=== PATIENT | female | born 1985 | race Hispanic/Latino ===

== ENCOUNTER 2017-05-19 23:31 | Emergency (ER) | payer OTHER ==
[2017-05-19 23:39] VITALS: RESP 16; O2SAT 98
[2017-05-19] MEDS ORDERED: DiphenhydrAMINE 50 mg/ml Inj IV STA (23:50)
[2017-05-19] MEDS ORDERED: Sodium Chloride 0.9% 1,000 ML IV STA (23:50)
[2017-05-19] MEDS ORDERED: DiphenhydrAMINE 50 mg/ml Inj ONE (23:57)
[2017-05-20 00:27] LABS: BASO # 0.1 K/uL (0.0-0.2); BASO % 0.6 % (0.0-2.0); EOS # 0.1 K/uL (0.0-0.7); EOS % 1.5 % (0.0-4.0); HEMOGLOBIN 13.1 g/dL (12.0-16.0); LYMPH # 2.5 K/uL (1.0-4.3); LYMPH % 28.2 % (20.0-40.0); MEAN CELL VOLUME 89.9 fl (81.0-99.0); MEAN CORPUSCULAR HEMOGLOBIN 30.4 pg (27.0-31.0); MEAN CORPUSCULAR HGB CONC 33.8 g/dL (33.0-37.0); MEAN PLATELET VOLUME 7.4 fl (7.2-11.7); MONO # 0.4 K/uL (0.0-0.8); MONO % 4.8 % (0.0-10.0); NEUT # 5.9 K/uL (1.8-7.0); NEUT % 64.9 % (50.0-75.0); NRBC % 0.1 % (0.0-0.0); RBC 4.31 Mil/uL (3.80-5.20); RED CELL DISTRIBUTION WIDTH 13.2 % (11.5-14.5)
[2017-05-20 00:35] LABS: ALB/GLOB RATIO 1.2 (1.0-2.1); ALBUMIN 3.9 g/dL (3.5-5.0); ALT/SGPT 26 U/L (9-52); AST/SGOT 22 U/L (14-36); BLOOD UREA NITROGEN 9 mg/dl (7-17); CALCIUM 9.2 mg/dL (8.4-10.2); GFR AFRICAN-AMERICAN > 60; GFR NON-AFRICAN AMERICAN > 60
--- NOTE | 2017-05-20 01:09 | ED PDOC ---
HPI: Allergic Reaction Time Seen by Provider: 05/19/17 23:49 Chief Complaint (Nursing): Allergic Reaction Chief Complaint (Provider): Allergic Reaction History Per: Patient History/Exam Limitations: no limitations Onset/Duration Of Symptoms: Hrs (x1) Current Symptoms Are (Timing): Still Present Context: Food Possible Cause: Food Associated Symptoms: Skin Rash, Swelling, Itching, Redness Home/EMS Treatment: Benadryl Additional Complaint(s): 31 y/o female with no past medical history, who presents to the ED complaining of an allergic reaction x1 hour. Patient states she was eating [place] food when she felt acute itchiness, lip swelling, rash, chest tightness, and shortness of breath. Patient states she took 2 Benadryl which resolved her chest tightness and shortness of breath, but her itchiness, rash, and swelling remained. States she has no known food allergies, but does have seasonal allergies. Reports taking control. PMD: Dr. Hutchins Past Medical History Reviewed: Historical Data, Nursing Documentation, Vital Signs Vital Signs: Last Vital Signs Temp 97.5 F L 05/19/17 23:35 Pulse 93 H 05/19/17 23:35 Resp 16 05/19/17 23:35 BP 119/82 05/19/17 23:35 Pulse Ox 98 05/19/17 23:35 - Medical History PMH: No Chronic Diseases - Surgical History Surgical History: No Surg Hx - Family History Family History: States: Unknown Family Hx - Social History Current smoker - smoking cessation education provided: No Alcohol: Occasional Drugs: Denies - Home Medications Home Medications: Ambulatory Orders Medication Instructions Recorded Cetirizine HCl [Zyrtec] 10 mg PO QAM #7 capsule 05/20/17 Famotidine [Pepcid] 20 mg PO Q12 #14 tab 05/20/17 predniSONE [predniSONE Tab] 60 mg PO QAM #12 tab 05/20/17 - Allergies Allergies/Adverse Reactions: Allergies Allergy/AdvReac Type Severity Reaction Status Date / Time No Known Allergies Allergy Verified 05/19/17 23:35 Review of Systems ROS Statement: Except As Marked, All Systems Reviewed And Found Negative ENT: Positive for: Other (lip swelling) Cardiovascular: Positive for: Other (chest tightness) Respiratory: Positive for: Shortness of Breath Skin: Positive for: Rash Physical Exam - Reviewed Nursing Documentation Reviewed: Yes Vital Signs Reviewed: Yes - Physical Exam Appears: Positive for: Non-toxic, No Acute Distress Head Exam: Positive for: ATRAUMATIC, NORMAL INSPECTION, NORMOCEPHALIC Skin: Positive for: Rash (erythematous urticarial rashes to neck and back) Eye Exam: Positive for: EOMI, Normal appearance, PERRL ENT: Positive for: Other (angioedema of lips) Neck: Positive for: Normal, Painless ROM, Supple Cardiovascular/Chest: Positive for: Regular Rate, Rhythm. Negative for: Murmur Respiratory: Positive for: Normal Breath Sounds. Negative for: Respiratory Distress Gastrointestinal/Abdominal: Positive for: Normal Exam, Bowel Sounds, Soft. Negative for: Tenderness Back: Positive for: Normal Inspection. Negative for: L CVA Tenderness, R CVA Tenderness, Vertebral Tenderness Extremity: Positive for: Normal ROM. Negative for: Pedal Edema, Deformity Neurologic/Psych: Positive for: Alert, Oriented. Negative for: Motor/Sensory Deficits - Laboratory Results Result Diagrams: 05/20/17 00:23 05/20/17 00:23 - ECG O2 Sat by Pulse Oximetry: 98 (RA) Pulse Ox Interpretation: Normal - Critical Care Total Time (In Min): 30 Disposition - Clinical Impression Clinical Impression: Allergic reaction, Angioedema - Patient ED Disposition Is Patient to be Admitted: No Counseled Patient/Family Regarding: Studies Performed, Diagnosis, Need For Followup, Rx Given - Disposition Disposition: Routine/Home Disposition Time: 01:35 Condition: STABLE Prescriptions: Cetirizine HCl [Zyrtec] 10 mg PO QAM #7 capsule Famotidine [Pepcid] 20 mg PO Q12 #14 tab predniSONE [predniSONE Tab] 60 mg PO QAM #12 tab Instructions: Hives, Angioedema Forms: [employer] (Polish) Medical Decision Making Medical Decision Making: Time: 23:50 Initial Impression: 31 y/o old female with allergic reaction and angioedema Initial Plan: --EKG --CMP --Urine --CBC w/ differential --Benadryl 50mg IV --Famotidine 40mg IV --Fluid bolus --Solu-Medrol 125mg IVP --Heplock insertion --Reevaluation Time: 01:35 Upon reevaluation, patient reports marked improvement in symptoms and is stable for discharge. Patient states she will follow up with [facility]. Return precautions provided. Scribe Attestation: Documented by Oswald Li, acting as a scribe for Phil Bhakta MD. Provider Scribe Attestation: All medical record entries made by the Scribe were at my direction and personally dictated by me. I have reviewed the chart and agree that the record accurately reflects my personal performance of the history, physical exam, medical decision making, and the department course for this patient. I have also personally directed, reviewed, and agree with the discharge instructions and disposition.
[2017-05-20 01:44] VITALS: BP 108/68; PULSE 78; TEMP 98
== END 2017-05-20 01:45 | disposition home or self-care (01) ==
LOC: H.ER 23:31
DX: T78.3XXA Angioneurotic edema, initial encounter (principal)
CPT/HCPCS: 80053; 85025; 96374; 99284; J1200; J2930; J7040